=== PATIENT | male | born 1950 | race African-American/Black ===

== ENCOUNTER 2017-05-26 14:54 | Emergency (ER) | payer MEDICARE ==
[2017-05-26] MEDS ORDERED: methylPREDNISolone Sod Succ/PF 125 MG/2 ML VIAL ONE (15:04)
[2017-05-26 15:09] LABS: #Basophils 0.1 thou/uL (0.0-0.2); #Lymphocytes 1.6 thou/uL (1.20-3.40); #Monocytes 0.8 thou/uL (0.11-0.59); #Neutrophils 9.6 thou/uL (1.40-6.50); %Basophils 0.7 % (0.0-1.0); %Eosinophils 0.1 % (0.0-10.0); %Lymphocytes 13.2 % (21.0-51.0); %Monocytes 6.4 % (0.0-10.0); %Neutrophils 79.6 % (42.0-75.0); Hemoglobin 15.1 g/dL (14.0-18.0); Mean Corpuscular HGB CONC 30.6 g/dL (32.0-36.0); Mean Corpuscular Hemoglobin 29.6 pg (27.0-31.0); Mean Corpuscular Volume 96.7 fl (80.0-94.0); Mean Platelet Volume 6.2 fL (7.4-10.4); Platelet Count 336 thou/uL (130-400); RBC Distribution Width 12.5 % (11.5-14.5); Red Blood Cell (RBC) Count 5.09 mill/uL (4.70-6.10)
[2017-05-26 15:28] LABS: ALT (SGPT) 22 U/L (8-55); AST (SGOT) 21 U/L (5-34); Albumin 3.8 g/dL (3.4-4.8); Alkaline Phosphatase 48 U/L (40-150); Anion Gap 18 mmol/L (10-20); BUN (Urea Nitrogen) 10 mg/dL (8.4-25.7); Bilirubin, Total 0.7 mg/dL (0.2-1.2); Calc. Creatinine Clearance 0 mL/min (70-130); Calcium 9.9 mg/dL (7.8-10.44); Carbon Dioxide 33 mmol/L (23-31); Chloride 94 mmol/L (98-107); Estimated GFR-MDRD Greater than 90; Glucose 177 mg/dL (80-115); Potassium 3.6 mmol/L (3.5-5.1); Protein, Total 7.8 g/dL (5.8-8.1); Sodium 141 mmol/L (136-145)
[2017-05-26 15:33] LABS: CKMB 3.6 ng/mL (0-6.6); Troponin I 0.024 ng/mL (< 0.028)
--- NOTE | 2017-05-26 17:01 | RAD ---
PORTABLE CHEST: Date: 05-26-17 Comparison: 09-20-14 FINDINGS: In the interval there has been the appearance of bibasilar infiltrates which are quite dense and sugg est pneumonia. The upper lobe apices are spared and are clear. The heart size is stable. The lungs ar e hyperexpanded suggestive of emphysema. There are no congestive changes. IMPRESSION: Prominent bibasilar infiltrate in a patient with emphysematous changes. POS: HOME
--- NOTE | 2017-05-26 17:21 | CT ---
CT ANGIO OF THE THORAX WITH CONTRAST: Date: 05-26-17 Technique: Spiral CT of the chest was performed for evaluation of possible pulmonary embolism in this patient who is quite tachypneic and dyspneic. FINDINGS: There is moderate opacification of the pulmonary arteries yielding a moderate sensitivity study. There were no layering filling defects in the larger pulmonary arterial branches to suggest emboli. T here was no sign of aortic aneurysm or dissection. No pericardial fluid was seen. Medium sized pulmon laura arterial branches or distal ones would not be displaced well here. The major finding on this study is diffuse infiltrative consolidative changes throughout the lungs, a ll lobes, but predominately in the lower half of the chest. The lung apices are relatively spared. Th e right middle lobe and lingula are most involves, followed by the right lower lobe and left lower lo be. Emphysematous changes and some baseline fibrotic change is suggested. There are no effusions. The se changes are new since the 2012 CT. There is one area in the base of the right upper lobe that dorota ures 2.5 cm in size and is somewhat mass like. It is still very possible that this is an infiltrative area given all of the other changes elsewhere. The sagittal views show slight anterior wedging of one of the lower thoracic vertebra and irregularit y of the superior endplate of the vertebra below it. This is obviously long standing and not acute. Scans into the upper abdomen showed no acute changes. Regarding the mediastinum, there is some subcarinal adenopathy with a clump of nodes measuring just o rony 2 cm in size. No masses were seen otherwise within the mediastinum. IMPRESSION: 1. Moderate sensitivity study showing no evidence of pulmonary embolism in the larger arterial branch es. Small emboli and more peripheral ones would be missed by this study. 2. Emphysematous changes with extensive severe lung consolidations, all lobes, predominately in the l ower half of the chest and especially in the anterior lobar regions. Severe infection is presumed. No nconventional organisms should also be considered. A pulmonary referral is needed. Findings and recommendations discussed with Dr. Mark at [id number] on 05-26-17. POS: HOME
== END 2017-05-26 17:07 | disposition short-term general hospital (02) ==
LOC: BURERS 14:54
DX: J44.1 Chronic obstructive pulmonary disease with (acute) exacerbation (principal); J18.9 Pneumonia, unspecified organism; I10 Essential (primary) hypertension; Z87.891 Personal history of nicotine dependence; Z79.899 Other long term (current) drug therapy
CPT/HCPCS: 71010; 71260; 80053; 82553; 83605; 83880; 84484; 85025; 85379; 87040; 93005; 94640; 96365; 96375; J1956; J2930; J7620